=== PATIENT | male | born 1990 | race African-American/Black ===

== ENCOUNTER 2018-07-15 12:11 | Emergency (ER) | payer MEDICAID ==
[~2018-07-15] VITALS: Ht 182.9 cm; Wt 98.0 kg
[2018-07-15] MEDS ORDERED: KETOROLAC 60MG/2ML VIAL IM ONE (12:45)
[2018-07-15 13:30] VITALS: BP 126/87
== END 2018-07-15 14:00 | disposition home or self-care (01) ==
LOC: ER 12:25
DX: M79.605 Pain in left leg (principal); M25.572 Pain in left ankle and joints of left foot; M79.672 Pain in left foot; F41.9 Anxiety disorder, unspecified; F17.200 Nicotine dependence, unspecified, uncomplicated; F12.10 Cannabis abuse, uncomplicated; Z88.6 Allergy status to analgesic agent
CPT/HCPCS: 73590; 73610; 73630; 96372; 99284; J1885; Z7610

== ENCOUNTER 2018-10-10 12:09 | Emergency (ER) | payer MEDICAID ==
[~2018-10-10] VITALS: Ht 182.9 cm; Wt 86.0 kg
[2018-10-10] MEDS ORDERED: AZITHROMYCIN 500 MG TABLET PO ONE (14:00)
[2018-10-10 14:37] VITALS: BP 110/82
== END 2018-10-10 14:39 | disposition home or self-care (01) ==
LOC: ER 14:03
DX: T36.4X5A Adverse effect of tetracyclines, initial encounter (principal); F12.10 Cannabis abuse, uncomplicated; Z88.6 Allergy status to analgesic agent; Y92.018 Other place in single-family (private) house as the place of occurrence of the external cause
CPT/HCPCS: 99282

== ENCOUNTER 2018-12-08 14:25 | Emergency (ER) | payer MEDICAID ==
[~2018-12-08] VITALS: Ht 182.9 cm; Wt 86.0 kg
[2018-12-08 22:12] VITALS: BP 114/75
[2018-12-08] MEDS ORDERED: IBUPROFEN 600MG TABLET PO ONE (22:15)
[2018-12-08] MEDS ORDERED: FAMOTIDINE 20MG TABLET PO ONE (22:15)
== END 2018-12-08 22:14 | disposition home or self-care (01) ==
LOC: ER 14:25
DX: K02.9 Dental caries, unspecified (principal); F12.10 Cannabis abuse, uncomplicated; Z88.6 Allergy status to analgesic agent
CPT/HCPCS: 99283

== ENCOUNTER 2019-02-13 00:24 | Emergency (ER) | payer SELFPAY ==
[~2019-02-13] VITALS: Ht 182.9 cm; Wt 87.0 kg
[2019-02-13] MEDS ORDERED: HYDROCODONE/ACETAMINOPHEN 5/325MG TABLET PO ONE (04:00)
[2019-02-13 05:43] VITALS: BP 121/74
== END 2019-02-13 05:45 | disposition home or self-care (01) ==
LOC: ER 00:24
DX: K02.9 Dental caries, unspecified (principal); K04.7 Periapical abscess without sinus; F12.10 Cannabis abuse, uncomplicated; F17.210 Nicotine dependence, cigarettes, uncomplicated; Z88.6 Allergy status to analgesic agent
CPT/HCPCS: 99283